=== PATIENT | female | born 1990 | race Two or more races ===

== ENCOUNTER 2016-10-12 06:15 | Inpatient (IN) | payer SELFPAY ==
[~2016-10-12] VITALS: Ht 172.7 cm; Wt 70.8 kg
[2016-10-12] MEDS ORDERED: BUTORPHANOL 2 MG VIAL. IV PRN (06:30)
[2016-10-12] MEDS ORDERED: FENTANYL PF 100 MCG/2 ML VIAL. IV PRN (06:30)
[2016-10-12] MEDS ORDERED: ONDANSETRON PF 4 MG/2 ML VIAL. IV PRN (06:30)
[2016-10-12] MEDS ORDERED: MAG HYDROX/ALUMINUM HYD/SIMETH 30 ML ORAL.SUSP PO PRN ×2 (06:30→15:30)
[2016-10-12] MEDS ORDERED: LIDOCAINE 1% PF 30 ML VIAL. INJ PRN (06:30)
[2016-10-12] MEDS ORDERED: IBUPROFEN 600 MG TABLET. PO PRN (06:30)
[2016-10-12] MEDS ORDERED: TERBUTALINE 1 MG/ML VIAL. SQ PRN (06:30)
[2016-10-12] MEDS ORDERED: OXYTOCIN 30 UNIT/500 ML PREMIX 500 ML IV PRN ×3 (06:30→15:30)
[2016-10-12] MEDS ORDERED: 0.9 % SODIUM CHLORIDE 10 ML DISP.SYRIN. IV PRN ×2 (06:30→15:30)
[2016-10-12 07:24] LABS: HEMATOCRIT 33.3 % (36.0-47.0); HEMOGLOBIN 10.9 g/dL (12.0-15.5); RED BLOOD COUNT 3.75 x10^6/uL (3.50-5.40); RED CELL DISTRIBUTION WIDTH 13.9 % (11.5-14.5); WHITE BLOOD COUNT 9.4 x10^3/uL (4.0-11.0)
[2016-10-12] MEDS: IV RINGERS,LACTATED 1000ML 1,000 ML IV SCH ×2 (07:28→12:22)
[2016-10-12 08:00] VITALS: BP 121/58
[2016-10-12] MEDS ORDERED: CHLOROPROCAINE 3% MPF 20 ML VIAL. ONE (13:17)
[2016-10-12] MEDS ORDERED: MAGNESIUM HYDROXIDE 2,400 MG/30 ML ORAL.SUSP. PO PRN (15:30)
[2016-10-12] MEDS ORDERED: ZOLPIDEM 5 MG TABLET. PO PRN (15:30)
[2016-10-12] MEDS ORDERED: HYDROCORTISONE 1% TOPICAL OINTMENT 30GM TUBE. TP PRN (15:30)
[2016-10-12] MEDS ORDERED: HYDROCODONE/APAP 5/325MG TABLET. PO PRN (15:30)
[2016-10-12] MEDS ORDERED: BENZOCAINE 20% TOPICAL AEROSOL SPRAY 57GM CAN. TP PRN (15:30)
[2016-10-12] MEDS ORDERED: ACETAMINOPHEN 325 MG TABLET. PO PRN (15:30)
[2016-10-12] MEDS ORDERED: DIPHENHYDRAMINE HCL 25 MG CAPSULE PO PRN (15:30)
[2016-10-12] MEDS ORDERED: PHENYLEPH/MINERAL OIL/PETROLAT RECTAL OINTMENT 28GM TUBE. RC PRN (15:30)
[2016-10-12] MEDS ORDERED: SIMETHICONE 80 MG TAB.CHEW PO PRN (15:30)
[2016-10-12 18:00] VITALS: BP 118/69
[2016-10-12] MEDS: ACETAMINOPHEN 325 MG TABLET. PO PRN (18:04)
[2016-10-12 19:30] VITALS: BP 116/68
[2016-10-12] MEDS ORDERED: IBUPROFEN 800 MG TABLET. PO SCH (22:00)
[2016-10-12 23:30] VITALS: BP 120/65
[2016-10-13 05:54] VITALS: BP 120/66
[2016-10-13 08:36] VITALS: BP 110/60
[2016-10-13 14:25] VITALS: BP 121/35
[2016-10-13] MEDS: FERROUS SULFATE 325 MG TABLET PO SCH (19:56)
[2016-10-13 21:00] VITALS: BP 118/69
[2016-10-13] MEDS: ACETAMINOPHEN 325 MG TABLET. PO PRN (21:07)
[2016-10-13 22:45] VITALS: BP 109/63
[2016-10-13 23:25] LABS: BASO % 0 % (0-3); EOS % 1 % (0-3); HEMATOCRIT 27.7 % (36.0-47.0); LYMPH # 3.7 x10^3/uL (1.0-4.8); LYMPH % 37 % (24-48); MEAN CORPUSCULAR HEMOGLOBIN 29 pg (25-35); MEAN CORPUSCULAR HGB CONC 33 g/dL (31-37); MEAN CORPUSCULAR VOLUME 90 fL (79-100); MONO % 10 % (0-9); NEUT % 52 % (31-73); PLATELET COUNT 206 x10^3/uL (140-400); RED CELL DISTRIBUTION WIDTH 14.2 % (11.5-14.5); WHITE BLOOD COUNT 10.1 x10^3/uL (4.0-11.0)
[2016-10-14] MEDS ORDERED: CEFAZOLIN 2GM PREMIX 50 ML IV ONE
[2016-10-14 04:12] LABS: BILIRUBIN,URINE NEGATIVE (NEG); GLUCOSE,URINE NEGATIVE (NEG); NITRITE,URINE NEGATIVE (NEG); PROTEIN,URINE 30 mg/dL (NEG-TRACE)
[2016-10-14 04:57] LABS: BACTERIA,URINE FEW /HPF (0-FEW); RBC,URINE TNTC /HPF (0-2); SQUAMOUS EPITHELIAL CELL,UR FEW /LPF
[2016-10-14 05:20] VITALS: BP 109/68
[2016-10-14] MEDS: FERROUS SULFATE 325 MG TABLET PO SCH (07:34)
[2016-10-14 11:43] VITALS: BP 107/66
[2016-10-14 16:35] VITALS: BP 114/71
--- NOTE | 2016-10-14 18:23 | PDOC1 ---
OB - History Hx of Present Care: Good Care Ultrasounds: Normal mid trimester US Obstetrical Complications: None Medical Complications: None Past Family/Social History * Past Medical, Surgical, Family and Obstetric Histories reviewed from chart. Blood Type: O+ Rubella: Immune RPR/VDRL: Negative GBS Status: Negative HBsAG: Negative OB - Chief Complaint & HPI Date of Admission: Date of Admission: Oct 12, 2016 at 06:15 Chief Complaint/History : 2 EDC: Oct 26, 2016 Reason for admission: induction of labor Indication for induction: other Admission Nurse Assessment Rev: Yes Problems: OB - Admission Exam Physical Exam Vitals: VS - Last 72 Hours, by Label Date Time Temp Pulse Resp B/P Pulse Ox O2 Delivery O2 Flow Rate FiO2 10/14/16 16:35 98.9 94 16 114/71 97 Room Air 98.9 10/14/16 11:43 99.1 90 20 107/66 98 Room Air 99.1 10/14/16 05:20 98.2 85 18 109/68 98 Room Air 98.2 10/14/16 02:00 98.5 98.5 10/13/16 22:45 100.7 102 20 109/63 98 Room Air 100.7 10/13/16 21:00 100.2 94 20 118/69 99 Room Air 100.2 10/13/16 14:25 98.3 88 18 121/35 98.3 10/13/16 08:36 97.9 87 18 110/60 98 Room Air 97.9 10/13/16 05:54 98.7 86 20 120/66 Room Air 98.7 10/12/16 23:30 98.4 90 20 120/65 Room Air 98.4 10/12/16 19:30 98.7 100 20 116/68 Room Air 98.7 10/12/16 18:00 98.6 95 18 118/69 98 Room Air 98.6 10/12/16 13:03 20 10/12/16 08:00 98.3 83 20 121/58 98.3 HEENT: Normal, Nasal Mucosa Normal, Oropharynx Normal, Moist Membranes, Fontanelles Normal Heart: Regular Rate Lungs: Clear, Equal Abdomen: Gravid Extremities: Normal Pulses, No tenderness or swelling Reflexes: Normal Cervical Dilatation: 2cm Effacement: 25% Station: Ballotable Membranes: Intact Amniotic Fluid: Clear Heart Rate: Normal Accelerations: Accelerations Present Short Term Variability: Present Contractions on Admission: None Intensity: Mild Assessment/Plan Assessment/Plan EMIL SMART MD Oct 14, 2016 18:23
--- NOTE | 2016-10-14 18:25 | PDOC ---
Provider Note Provider Note 10/13/16 Doing well VSS Uterus NTTP FU in AM Late entry EMIL JAQUEZ MD Oct 14, 2016 18:25
--- NOTE | 2016-10-14 18:27 | PDOC3 ---
OB DISCHARGE SUMMARY DATE OF ADMISSION: 10/12/16 DATE OF DISCHARGE: 10/14/16 REASON FOR ADMISSION: Induction of labor PROCEDURES: Ultrasound INTRAPARTUM PROCEDURES: Vacum Extraction PROCEDURES: None OPERATIONS: None DISCHARGE DIAGNOSIS: Term Delivered DISCHARGE INFORMATION: Activity, Diet HOSPITAL COURSE Unremarkable CONDITION AT DISCHARGE Stable EMIL JAQUEZ MD Oct 14, 2016 18:27
--- NOTE | 2016-10-14 18:31 | PDOC ---
VAGINAL DELIVERY DATE DATE: 10/12/16 TIME: 18:28 : 2 Para: 1 EDC: Oct 26, 2016 VAGINAL DELIVERY: VTX VACCUM ASSISTED: Yes NUMBER OF PULLS 1 NUMBER OF POP OFFS 0 PLACENTA: Spontaneous SEX: Female WEIGHT 7/5 Nuchal Cord: No Amniotic Fluid: Clear PAIN: Local EPISIOTOMY: No EXTENSION: No EBL 400cc COMPLICATIONS None CONDITION Stable Signs of Intrauterine Infectio: None Shoulder Dystocia: No DIAGNOSIS TIUPdel Problems: EMIL JAQUEZ MD Oct 14, 2016 18:31
[2016-10-14] MEDS ORDERED: HYDR-971 PO (18:33)
[2016-10-14] MEDS ORDERED: NAPR500T PO (18:33)
== END 2016-10-14 18:54 | disposition home or self-care (01) | DRG 775 ==
LOC: 3 SO LND 06:15
PROVIDERS: ADMIT Specialist; ATTEND Specialist
PROC: 10E0XZZ Delivery of Products of Conception, External Approach (ICD-10-PCS; principal; 2016-10-12)
DX: O80 Encounter for full-term uncomplicated delivery (principal); Z3A.38 38 weeks gestation of pregnancy; Z37.0 Single live birth
CPT/HCPCS: 36415; 81001; 85014; 85027; 86593; 86850; 86900; 86901; J0690; J2590; J3010; J7120